=== PATIENT | male | born 1960 | race Caucasian/White ===

== ENCOUNTER 2019-02-16 08:29 | Day surgery (SDC) | payer OTHER ==
[~2019-02-16] VITALS: Ht 170.2 cm; Wt 69.5 kg
[2019-02-16] MEDS ORDERED: LOSA25TA12 PO (09:22)
[2019-02-16] MEDS ORDERED: HYDR12.517 PO (09:22)
[2019-02-16] MEDS ORDERED: ATOR20TA86 PO (09:22)
[2019-02-16 09:24] VITALS: BP 136/85
[2019-02-16] MEDS ORDERED: LACTATED RINGERS 1,000 ML IV SCH (09:29)
[2019-02-16] MEDS ORDERED: ACETAMINOPHEN 500 MG TABLET PO ONE (09:30)
[2019-02-16] MEDS ORDERED: GABAPENTIN 300 MG CAPSULE PO ONE (09:30)
[2019-02-16] MEDS ORDERED: FENTANYL PF 250 MCG/5ML ONE (10:07)
[2019-02-16] MEDS ORDERED: ESMOLOL 100 MG/10 ML ONE (10:21)
[2019-02-16 10:26] LABS: ALANINE AMINOTRANSFERASE 24 U/L (12-78); ANION GAP 8 mmol/L (5-15); CHLORIDE 111 mmol/L (98-107); CREATININE 0.95 mg/dL (0.7-1.3)
[2019-02-16 10:28] LABS: ALKALINE PHOSPHATASE 62 U/L (45-117); BILIRUBIN,TOTAL 1.4 mg/dL (0.2-1.0); TOTAL PROTEIN 6.7 g/dL (6.4-8.2)
[2019-02-16] MEDS ORDERED: FENTANYL PF 100 MCG/2ML IV PRN (10:30)
[2019-02-16] MEDS ORDERED: HALOPERIDOL 5 MG/ML IV PRN (10:30)
[2019-02-16] MEDS ORDERED: OXYcodone 5 MG/5 ML ORAL.SOL UDC PO PRN (10:30)
[2019-02-16] MEDS ORDERED: hydrALAzine 20 MG/ML, 1ML IV PRN (10:30)
[2019-02-16] MEDS ORDERED: PROMETHAZINE 25 MG/ML, 1ML IV PRN (10:30)
[2019-02-16] MEDS ORDERED: MEPERIDINE/PF 25MG/ML,1ML IVPush PRN (10:30)
[2019-02-16] MEDS ORDERED: HYDROmorphone 2 MG/ML, 1ML IVPush PRN (10:30)
[2019-02-16] MEDS ORDERED: LABETALOL 5MG/ML, 20ML IV PRN (10:30)
[2019-02-16 10:32] LABS: BASOPHILS # (AUTO) 0.02 x10^3/uL (0-0.1); BASOPHILS % (AUTO) 0 % (0-1); EOSINOPHILS # (AUTO) 0.04 x10^3/uL (0-0.4); EOSINOPHILS % (AUTO) 1 % (1-7); LYMPHOCYTES # (AUTO) 0.97 x10^3/uL (1-3.4); LYMPHOCYTES % (AUTO) 16 % (22-44); MD NO; MEAN CORPUSCULAR HEMOGLOBIN 30.8 pg (27.5-34.5); MEAN CORPUSCULAR HGB CONC 33.4 g/dL (33.2-36.2); MEAN CORPUSCULAR VOLUME 92.3 fL (81-97); MONOCYTES # (AUTO) 0.27 x10^3/uL (0.2-0.8); MONOCYTES % (AUTO) 4 % (2-9); NEUTROPHILS # (AUTO) 4.96 x10^3/uL (1.8-6.8); NEUTROPHILS % (AUTO) 79 % (42-75); PLATELET COUNT 249 x10^3/uL (130-400); RED BLOOD COUNT 5.22 x10^6/uL (4.38-5.82); RED CELL DISTRIBUTION WIDTH 13.3 % (9.4-14.8)
[2019-02-16] MEDS ORDERED: MIDAZOLAM 1 MG/ML, 2ML ONE (10:42)
[2019-02-16] MEDS ORDERED: EPINEPHRINE 1 MG/ML, 1ML ONE (10:48)
[2019-02-16] MEDS ORDERED: BUPIVACAINE/PF 0.25% ONE (10:48)
[2019-02-16] MEDS ORDERED: DEXAMETHASONE 4 MG/ML, 1ML ONE (12:13)
[2019-02-16] MEDS ORDERED: ONDANSETRON 2MG/ML, 2ML ONE (12:13)
[2019-02-16] MEDS ORDERED: ROCURONIUM 10MG/ML,5ML ONE (12:13)
[2019-02-16] MEDS ORDERED: PROPOFOL 10 MG/ML, 20ML ONE (12:13)
[2019-02-16] MEDS ORDERED: NEOSTIGMINE 1 MG/ML, 10ML ONE (12:13)
[2019-02-16] MEDS ORDERED: SUCCINYLCHOLINE 20 MG/ML, 10ML ONE (12:13)
[2019-02-16] MEDS ORDERED: CEFAZOLIN 1,000 MG ONE (12:13)
[2019-02-16] MEDS ORDERED: GLYCOPYRROLATE 0.2MG/1ML, 5ML ONE (12:13)
[2019-02-16] MEDS ORDERED: FENTANYL PF 100 MCG/2ML ONE (12:37)
[2019-02-16] MEDS ORDERED: MEPERIDINE/PF 25MG/ML,1ML ONE (12:37)
[2019-02-16] MEDS ORDERED: OXYcodone 5 MG/5 ML ORAL.SOL UDC ONE (12:38)
== END 2019-02-16 19:10 | disposition home or self-care (01) ==
LOC: OUT 08:29 → EDBD 10:30 → OUT 19:10
PROVIDERS: ATTEND Surgery
DX: K40.20 Bilateral inguinal hernia, without obstruction or gangrene, not specified as recurrent (principal); I10 Essential (primary) hypertension; E78.5 Hyperlipidemia, unspecified; Z72.89 Other problems related to lifestyle; Z79.899 Other long term (current) drug therapy; Z82.49 Family history of ischemic heart disease and other diseases of the circulatory system; Z83.3 Family history of diabetes mellitus; Z80.1 Family history of malignant neoplasm of trachea, bronchus and lung
CPT/HCPCS: 36415; 49650; 80053; 85025; 93005; C1727; C1781; J0171; J0330; J0690; J1100; J2175; J2250; J2405; J2704; J2710; J3010; J3490; J7120